=== PATIENT | male | born 1955 | race Caucasian/White ===

== ENCOUNTER 2021-11-06 00:48 | Day surgery (SDC) | payer OTHER, SELFPAY ==
[2021-10-24 13:01] VITALS: BMI 30.7
[2021-11-06 07:09] VITALS: BP 170/94; PULSE 91; RESP 18; TEMP 36.3; O2SAT 98
[2021-11-06] MEDS: LACTATED RINGERS 1,000 ML 150 ML IV CONT (07:21)
--- NOTE | 2021-11-06 07:23 | WPDGICN ---
Assessment and Plan Assessment and plan (1) History of colon polyps: Code(s): Z86.010 - Personal history of colonic polyps Status: Acute Assessment and Plan: Patient has a history of colon polyps on 2 previous colonoscopies. Most recently 5 years ago. Plan is for surveillance colonoscopy at 5 year intervals. Further recommendations will be given after endoscopy. GI Consult Note Consult date/time: 11/06/21 07:23 Reason for consult: History of colon polyps. HPI: Rolando Melo is a 66 year old male Presents for screening colonoscopy. Patient has had 2 prior colonoscopies. Colon polyps were identified at those times. Most recent colonoscopy at [facility] 5 years ago revealed adenomatous colon polyp. Patient presents today for follow-up screening colonoscopy. He reports that his weight appetite bowel movements are normal. Review of Systems Review of Systems: Review of systems noncontributory. [facility] Past Medical History Medical History BMI 31.0-31.9,adult Colonic polyp Hyperlipidemia Hypertension Obstructive sleep apnea Family History Family History Unknown No problems noted. Social History Social History (Updated 10/01/21 @ 10:40 by Joan Markham [facility]) Smoking status: Former smoker Tobacco type: cigarettes Alcohol intake: current Alcohol use details: 5-6 drinks per year Substance use: never Substance use type: does not use Living arrangements: alone Spiritual care concerns: No Meds Home Medications and Allergies Home Medications Medication Instructions Recorded Confirmed Type fluticasone propionate 50 1 spray intranasal DAILY PRN 04/02/21 11/06/21 History mcg/actuation nasal Allergy Symptoms spray,suspension (Flonase Allergy Relief) ascorbic acid (vitamin C) 500 mg 500 mg PO DAILY 10/01/21 11/06/21 History tablet cholecalciferol (vitamin D3) 25 25 mcg PO DAILY 10/01/21 11/06/21 History mcg (1,000 unit) capsule multivit,Ca,min-iron 8 mg-folic 1 tablet PO DAILY 10/01/21 11/06/21 History acid 200 mcg-lycopene 600 mcg tablet (Centrum Ultra Men's) atorvastatin 40 mg tablet (Lipitor) 40 mg PO DAILY #30 tabs 10/16/21 11/06/21 Rx ramipril 10 mg capsule 10 mg PO DAILY #30 caps 10/16/21 11/06/21 Rx clobetasol 0.05 % topical ointment 1 applic topical PRN PRN Itching 10/24/21 11/06/21 History Allergies Allergy/AdvReac Type Severity Reaction Status Date / Time No Known Allergies Allergy Verified 11/06/21 07:07 Vital Signs Vital Signs - 24 hr 11/06/21 07:09 Temperature 97.4 F L Pulse Rate 91 Respiratory Rate 18 Blood Pressure 170/94 H Pulse Oximetry 98 Oxygen Delivery Room Air Exam Narrative: Physical exam reveals patient be alert. Vital signs stable. HEENT exam is unremarkable. Patient is anicteric. Lungs are clear to auscultation and percussion. Heart is without murmur or extra sounds. Abdominal exam bowel sounds are present soft nontender with no organomegaly. Digital external rectal exam is normal.
--- NOTE | 2021-11-06 07:42 | WPDANESEPPF ---
Anes - Initial Pre Proc Eval Procedure: Operation Date: 11/06/21 08:30 Proposed Procedures p Screening Colonoscopy - Keyur Berrios MD Date/Time: 11/06/21 07:42 Surgeon: Keyur Berrios MD Pre Op Diagnosis: hx of colon polyps Patient Data Age: 66 Gender: M Height: 1.8 m Weight: 95.8 kg Last Vital Signs Temp 36.3 C L 11/06/21 07:09 Pulse 91 11/06/21 07:09 Resp 18 11/06/21 07:09 BP 170/94 H 11/06/21 07:09 Pulse Ox 98 11/06/21 07:09 O2 Del Method Room Air 11/06/21 07:09 Allergies Allergy/AdvReac Type Severity Reaction Status Date / Time No Known Allergies Allergy Verified 11/06/21 07:07 Home Medications Medication Instructions Recorded Confirmed Type fluticasone propionate 50 1 spray intranasal DAILY PRN 04/02/21 11/06/21 History mcg/actuation nasal Allergy Symptoms spray,suspension (Flonase Allergy Relief) ascorbic acid (vitamin C) 500 mg 500 mg PO DAILY 10/01/21 11/06/21 History tablet cholecalciferol (vitamin D3) 25 25 mcg PO DAILY 10/01/21 11/06/21 History mcg (1,000 unit) capsule multivit,Ca,min-iron 8 mg-folic 1 tablet PO DAILY 10/01/21 11/06/21 History acid 200 mcg-lycopene 600 mcg tablet (Centrum Ultra Men's) atorvastatin 40 mg tablet (Lipitor) 40 mg PO DAILY #30 tabs 10/16/21 11/06/21 Rx ramipril 10 mg capsule 10 mg PO DAILY #30 caps 10/16/21 11/06/21 Rx clobetasol 0.05 % topical ointment 1 applic topical PRN PRN Itching 10/24/21 11/06/21 History Patient hx anesthesia problems: none Family hx anesthesia problems: none Results Review: All pre-operative results and documents have been reviewed as part of the pre-operative evaluation. [facility] Past Medical History Medical History BMI 31.0-31.9,adult Colonic polyp Hyperlipidemia Hypertension Obstructive sleep apnea Family History Family History Unknown No problems noted. Social History Social History Smoking status: Former smoker Tobacco type: cigarettes Alcohol intake: current Alcohol use details: 5-6 drinks per year Substance use: never Substance use type: does not use Living arrangements: alone Spiritual care concerns: No Anes - Eval Final PreProcedure Day of Procedure 11/06/21 07:42 Patient weight: obese Heart: regular rate and rhythm Lungs: clear to auscultation Airway: Mallampati scale class II Neurological: alert and oriented Last oral intake: >/= 8 hours ASA classification: III Emergent: no Anesthetic plan: proceed Anesthesia type and monitoring: general GIVS and standard monitoring Results Review: All pre-operative results and documents have been reviewed as part of the pre-operative evaluation. Informed Consent: The patient's anesthetic plan and its attendant risks and benefits were discussed with the patient/family/POA. Questions were solicited and answers provided to the satisfaction of the patient/family/POA.
[2021-11-06 08:50] VITALS: BP 147/79; PULSE 80; RESP 21; O2SAT 98
[2021-11-06 09:00] VITALS: BP 159/80; PULSE 83; RESP 23; O2SAT 97
[2021-11-06 09:10] VITALS: BP 164/84; PULSE 84; RESP 22; O2SAT 97
== END 2021-11-06 09:17 | disposition home or self-care (01) ==
PROVIDERS: PCP Family Medicine; Visit Provider Internal Medicine Gastroenterology
PROC: 0DJD8ZZ Inspection of Lower Intestinal Tract, Via Natural or Artificial Opening Endoscopic (ICD-10-PCS; CPT 45378; principal; 2021-11-06 08:30)
DX: Z12.11 Encounter for screening for malignant neoplasm of colon (principal); K64.8 Other hemorrhoids; K57.30 Diverticulosis of large intestine without perforation or abscess without bleeding; Z86.010 Personal history of colon polyps; I10 Essential (primary) hypertension; E78.5 Hyperlipidemia, unspecified; G47.33 Obstructive sleep apnea (adult) (pediatric); Z87.891 Personal history of nicotine dependence; E66.9 Obesity, unspecified; Z68.29 Body mass index [BMI] 29.0-29.9, adult
CPT/HCPCS: 45378; J2704; J7120